=== PATIENT | female | born 1995 | race Caucasian/White ===

== ENCOUNTER → 2020-04-18 | Outpatient (CLI) | payer OTHER ==
[~2020-04-18] MED LIST: BCP; NONE PER PT
[2020-04-18 11:23] LABS: BASOPHILS # (AUTO) 0.04 x10^3/uL (0-0.1); BASOPHILS % (AUTO) 1 % (0-1); EOSINOPHILS # (AUTO) 0.06 x10^3/uL (0-0.4); EOSINOPHILS % (AUTO) 1 % (1-7); LYMPHOCYTES # (AUTO) 1.91 x10^3/uL (1-3.4); LYMPHOCYTES % (AUTO) 31 % (22-44); MD NO; MEAN CORPUSCULAR HEMOGLOBIN 32.5 pg (27.0-34.8); MEAN CORPUSCULAR HGB CONC 33.9 g/dL (32.4-35.8); MEAN CORPUSCULAR VOLUME 95.9 fL (80-100); MEAN PLATELET VOLUME 8.1 fL (7.4-10.4); MONOCYTES # (AUTO) 0.41 x10^3/uL (0.2-0.8); MONOCYTES % (AUTO) 7 % (2-9); NEUTROPHILS # (AUTO) 3.77 x10^3/uL (1.8-6.8); NEUTROPHILS % (AUTO) 61 % (42-75); PLATELET COUNT 303 x10^3/uL (130-400); RED BLOOD COUNT 4.96 x10^6/uL (3.82-5.3); RED CELL DISTRIBUTION WIDTH 12.8 % (9.6-15.2)
[2020-04-18 11:33] LABS: ALANINE AMINOTRANSFERASE 19 U/L (12-78); ALBUMIN 4.3 g/dL (3.4-5.0); ANION GAP 6 mmol/L (5-15); CHLORIDE 107 mmol/L (98-107); CREATININE 0.83 mg/dL (0.55-1.02)
[2020-04-18 11:39] LABS: ALKALINE PHOSPHATASE 77 U/L (45-117); BILIRUBIN,TOTAL 0.8 mg/dL (0.2-1.0); TOTAL PROTEIN 7.9 g/dL (6.4-8.2)
[2020-04-18 11:40] LABS: MICROSCOPIC NOT IND
== END | disposition home or self-care (01) ==
LOC: STAR 10:19
PROVIDERS: ATTEND Obstetrics & Gynecology Gynecology
DX: Z01.812 Encounter for preprocedural laboratory examination (principal); Z20.828 Contact with and (suspected) exposure to other viral communicable diseases; N94.5 Secondary dysmenorrhea; R10.2 Pelvic and perineal pain
CPT/HCPCS: 36415; 80053; 81003; 84703; 85025; 87635

== ENCOUNTER 2020-04-22 07:26 | Observation (INO) | payer OTHER ==
[~2020-04-22] VITALS: Ht 167.6 cm; Wt 60.0 kg
[~2020-04-22 07:26] MED LIST changes: +FLUORESCEIN SODIUM 500 MG/5 ML ONE; +INDIGO CARMINE 0.8%, 5ML ONE; +LIDOCAINE 1%-EPI 1:100K, 20ML ONE; +METHYLENE BLUE 50 MG/10 ML AMP ONE
[2020-04-22] MEDS ORDERED: MIDAZOLAM 1 MG/ML, 2ML ONE (07:51)
[2020-04-22] MEDS ORDERED: FENTANYL PF 250 MCG/5ML ONE (07:51)
[2020-04-22] MEDS ORDERED: LACTATED RINGERS 1,000 ML IV SCH (08:11)
[2020-04-22] MEDS ORDERED: [UNRECOGNIZED DRUG - REMARK] (08:15)
[2020-04-22] MEDS ORDERED: SCOPOLAMINE 1MG PATCH TD ONE (08:25)
[2020-04-22] MEDS ORDERED: SCOPOLAMINE 1MG PATCH TD SCH (08:30)
[2020-04-22] MEDS ORDERED: CHLORHEXIDINE 15 ML UDC MM ONE (08:30)
[2020-04-22 08:36] LABS: HCG UR SG 1.023 (1.003-1.030)
[2020-04-22] MEDS ORDERED: ONDANSETRON 2MG/ML, 2ML ONE ×2 (10:24→10:47)
[2020-04-22] MEDS ORDERED: ROCURONIUM 10MG/ML,5ML ONE (10:24)
[2020-04-22] MEDS ORDERED: SUCCINYLCHOLINE 20 MG/ML, 10ML ONE (10:24)
[2020-04-22] MEDS ORDERED: SUGAMMADEX 200 MG/2 ML IVPush ONE (10:24)
[2020-04-22] MEDS ORDERED: KETOROLAC 30 MG/1 ML ONE (10:24)
[2020-04-22] MEDS ORDERED: DEXAMETHASONE 4 MG/ML, 1ML ONE (10:24)
[2020-04-22] MEDS ORDERED: CEFAZOLIN 1,000 MG ONE (10:24)
[2020-04-22] MEDS ORDERED: PROPOFOL 10 MG/ML, 20ML ONE (10:24)
[2020-04-22] MEDS ORDERED: GLYCOPYRROLATE 0.2MG/1ML, 5ML ONE (10:24)
[2020-04-22] MEDS ORDERED: MEPERIDINE/PF 25MG/ML,1ML ONE (10:28)
[2020-04-22] MEDS ORDERED: ONDANSETRON 2MG/ML, 2ML IVPush PRN (10:30)
[2020-04-22] MEDS ORDERED: KETOROLAC 30 MG/1 ML IV PRN (10:30)
[2020-04-22] MEDS ORDERED: PROMETHAZINE 25 MG/ML, 1ML IV PRN (10:30)
[2020-04-22] MEDS ORDERED: hydrALAzine 20 MG/ML, 1ML IV PRN (10:30)
[2020-04-22] MEDS ORDERED: HYDROmorphone 1 MG/ML, 1ML INJ IV PRN (10:30)
[2020-04-22] MEDS ORDERED: METOCLOPRAMIDE 5 MG/ML, 2ML IV PRN (10:30)
[2020-04-22] MEDS ORDERED: MEPERIDINE/PF 25MG/0.5ML IVPush PRN (10:30)
[2020-04-22] MEDS ORDERED: DIAZEPAM 5 MG/ML, 2ML IV PRN ×2 (10:30)
[2020-04-22] MEDS ORDERED: LABETALOL 5MG/ML, 20ML IV PRN (10:30)
[2020-04-22] MEDS ORDERED: ALBUTEROL SULFATE 2.5 MG/3 ML NPPB PRN (10:30)
[2020-04-22] MEDS ORDERED: FENTANYL PF 100 MCG/2ML ONE ×2 (10:47→11:19)
[2020-04-22] MEDS: FENTANYL PF 100 MCG/2ML IV PRN ×3 (10:51→11:20)
[2020-04-22] MEDS ORDERED: OXYcodone 5 MG/5 ML ORAL.SOL UDC ONE (11:10)
[2020-04-22] MEDS: OXYcodone 5 MG/5 ML ORAL.SOL UDC PO PRN ×2 (11:15→16:06)
[2020-04-22 18:58] VITALS: BP 104/66
[2020-04-22] MEDS: OXYcodone/APAP 7.5/325MG TABLET PO PRN (20:23)
[2020-04-23 00:49] VITALS: BP 100/62
[2020-04-23] MEDS: OXYcodone/APAP 7.5/325MG TABLET PO PRN ×3 (01:02→08:10)
[2020-04-23] MEDS: LACTATED RINGERS 1,000 ML IV SCH ×2 (01:03→09:26)
[2020-04-23 04:36] VITALS: BP 95/55
[2020-04-23 07:55] VITALS: BP 91/53
[2020-04-23] MEDS ORDERED: OXYC-306 PO (09:05)
[2020-04-23 10:11] VITALS: BP 97/62
== END 2020-04-23 10:38 | disposition home or self-care (01) ==
LOC: OUT 07:26 → ORIP 17:15 → INTOOBSV 17:15 → 4NE 18:41 → DCLOUNGE 04-23 10:30
PROVIDERS: ADMIT Obstetrics & Gynecology Gynecology; ATTEND Obstetrics & Gynecology Gynecology
DX: N94.6 Dysmenorrhea, unspecified (principal); R10.2 Pelvic and perineal pain; G89.29 Other chronic pain; N94.10 Unspecified dyspareunia
CPT/HCPCS: 36415; 58260; 81025; 85014; 88307; 96361; 96374; G0378; J0330; J0690; J1100; J1885; J2175; J2250; J2405; J2704; J3010; J3360; J7120; Q9968